=== PATIENT | female | born 1995 | race Caucasian/White ===

== ENCOUNTER 2017-02-19 14:16 | Emergency (ER) | payer MEDICAID, OTHER ==
[~2017-02-19] VITALS: Ht 157.5 cm; Wt 65.9 kg
[~2017-02-19 14:16] MED LIST: ALBU8.5H3 IH
[2017-02-19] MEDS ORDERED: PredniSONE 20 MG TABLET PO ONE (15:30)
[2017-02-19] MEDS ORDERED: ALBUTEROL SULFATE HFA 90 MCG/PUFF 8 GM INHALER IH ONE (15:30)
[2017-02-19 17:01] VITALS: BP 103/54
== END 2017-02-19 17:22 | disposition home or self-care (01) ==
LOC: EMS 14:17
DX: J45.901 Unspecified asthma with (acute) exacerbation (principal); F32.9 Major depressive disorder, single episode, unspecified; I10 Essential (primary) hypertension
CPT/HCPCS: 94640; 99283; J7512; J3535